=== PATIENT | female | born 1990 | race Caucasian/White ===

== ENCOUNTER 2021-05-16 19:13 | Emergency (ER) | payer BC, MEDICAID ==
[2021-05-16 21:11] LABS: HEMOGLOBIN 10.3 gm/dl (12.3-15.3); RED BLOOD COUNT 4.01 M/UL (4.00-5.10)
[2021-05-16] MEDS ORDERED: ZOFRAN4 MG PO (21:26)
[2021-05-16] MEDS ORDERED: OMNICEF 300 MG300 MG PO (21:26)
[2021-05-16 21:30] LABS: BUN/CREATININE RATIO 13 (0-10)
== END 2021-05-16 22:35 | disposition home or self-care (01) ==
LOC: ER1 19:13
PROVIDERS: Physician Assistant
DX: N39.0 Urinary tract infection, site not specified (principal); Z87.442 Personal history of urinary calculi; Z88.1 Allergy status to other antibiotic agents
CPT/HCPCS: 80053; 81001; 84703; 85025; 87077; 87086; 87186; 96374; 96375; 99284; J0696; J1885; J2405; J7030

== ENCOUNTER 2021-05-17 14:22 | Inpatient (IN) | payer BC, MEDICAID ==
[~2021-05-17] VITALS: Ht 172.7 cm; Wt 52.2 kg
[~2021-05-17 14:22] MED LIST: OMNICEF 300 MG300 MG PO; ZOFRAN4 MG PO
[2021-05-17 15:09] LABS: HEMOGLOBIN 10.3 gm/dl (12.3-15.3); RED BLOOD COUNT 3.97 M/UL (4.00-5.10)
[2021-05-17 15:10] LABS: WHITE BLOOD COUNT 17.2 K/UL (4.5-11.0)
[2021-05-17 15:30] LABS: BUN/CREATININE RATIO 19 (0-10)
[2021-05-18 06:45] LABS: HEMOGLOBIN 8.2 gm/dl (12.3-15.3); RED BLOOD COUNT 3.19 M/UL (4.00-5.10); WHITE BLOOD COUNT 11.5 K/UL (4.5-11.0)
[2021-05-18 07:16] LABS: BUN/CREATININE RATIO 12 (0-10)
[2021-05-19 09:19] LABS: HEMOGLOBIN 8.4 gm/dl (12.3-15.3); RED BLOOD COUNT 3.27 M/UL (4.00-5.10); WHITE BLOOD COUNT 9.3 K/UL (4.5-11.0)
[2021-05-19 10:16] LABS: BUN/CREATININE RATIO 12 (0-10)
[2021-05-20 07:31] LABS: HEMOGLOBIN 7.9 gm/dl (12.3-15.3); RED BLOOD COUNT 3.21 M/UL (4.00-5.10); WHITE BLOOD COUNT 6.9 K/UL (4.5-11.0)
[2021-05-20 08:00] LABS: BUN/CREATININE RATIO 9 (0-10)
[2021-05-21 09:28] LABS: HEMOGLOBIN 8.4 gm/dl (12.3-15.3); RED BLOOD COUNT 3.38 M/UL (4.00-5.10)
[2021-05-21 09:32] LABS: WHITE BLOOD COUNT 4.2 K/UL (4.5-11.0)
[2021-05-21 10:02] LABS: BUN/CREATININE RATIO 7 (0-10)
[2021-05-21] MEDS ORDERED: POLYETHYLENE GL17 GM PO (11:17)
[2021-05-21] MEDS ORDERED: PROTONIX 40 MG40 M1 PO (11:17)
[2021-05-21] MEDS ORDERED: HUMIBID LA TAB600 MG PO (11:17)
[2021-05-21] MEDS ORDERED: FERROUS SULFAT325 M2 PO (11:49)
[2021-05-21] MEDS ORDERED: CEFUROXIME250 MG PO (11:49)
== END 2021-05-21 15:05 | disposition home or self-care (01) | DRG 872 ==
LOC: ER1 14:22 → MED SURG 4 18:28 → CDU 18:28 → MED SURG 4 19:30
PROVIDERS: Physician Assistant; ADMIT Internal Medicine
DX: A41.51 Sepsis due to Escherichia coli [E. coli] (principal); N10 Acute pyelonephritis; E44.1 Mild protein-calorie malnutrition; Z68.1 Body mass index [BMI] 19.9 or less, adult; Z20.822 Contact with and (suspected) exposure to COVID-19; F41.9 Anxiety disorder, unspecified; N20.0 Calculus of kidney; E87.6 Hypokalemia; K81.9 Cholecystitis, unspecified; E86.0 Dehydration; Z87.442 Personal history of urinary calculi; Z86.16 Personal history of COVID-19; Z87.440 Personal history of urinary (tract) infections; Z87.59 Personal history of other complications of pregnancy, childbirth and the puerperium; Z88.1 Allergy status to other antibiotic agents; Z82.49 Family history of ischemic heart disease and other diseases of the circulatory system; Z83.49 Family history of other endocrine, nutritional and metabolic diseases
CPT/HCPCS: 36415; 71045; 71046; 80053; 81001; 82272; 82550; 82553; 82728; 83540; 83550; 83605; 83735; 83874; 84439; 84443; 84484; 85025; 85045; 85379; 87040; 87086; 93005; 96365; 96375; 99285; C9113; J1650; J1885; J2185; J2270; J2405; Q9967; U0002

== ENCOUNTER 2021-11-20 13:22 | Emergency (ER) | payer SELFPAY ==
[~2021-11-20 13:22] MED LIST changes: +CEFUROXIME250 MG PO; +FERROUS SULFAT325 M2 PO; +HUMIBID LA TAB600 MG PO; +POLYETHYLENE GL17 GM PO; +PROTONIX 40 MG40 M1 PO
[2021-11-20 14:38] LABS: HEMOGLOBIN 8.9 gm/dl (12.3-15.3); RED BLOOD COUNT 4.5 M/UL (4.00-5.10); WHITE BLOOD COUNT 9.5 K/UL (4.5-11.0)
[2021-11-20 15:07] LABS: BUN/CREATININE RATIO 15 (0-10)
[2021-11-20] MEDS ORDERED: OMNICEF 300 MG300 MG PO (16:11)
== END 2021-11-20 17:30 | disposition home or self-care (01) ==
LOC: ER1 13:22
PROVIDERS: Emergency Medicine
DX: N39.0 Urinary tract infection, site not specified (principal); Z87.442 Personal history of urinary calculi; Z88.1 Allergy status to other antibiotic agents
CPT/HCPCS: 80053; 81001; 83605; 83690; 84703; 85025; 87040; 87086; 96374; 96375; 99284; J0696; J1885; J2270; J2405